=== PATIENT | female | born 1955 | race Caucasian/White ===

== ENCOUNTER 2020-06-30 06:33 | Day surgery (SDC) | payer OTHER ==
[2020-06-28 08:59] VITALS: BMI 51.1
[~2020-06-30 06:33] MED LIST: LACTATED RINGERS 1,000 ML IV SCH
[2020-06-30 06:58] VITALS: TEMP 97
[2020-06-30 07:09] LABS: Glucose,Whole Blood 143 mg/dL (75-99)
[2020-06-30] MEDS ORDERED: KETAMINE 10 MG/ML 20 ML VIAL ONE (07:35)
[2020-06-30] MEDS ORDERED: MIDAZOLAM 2 MG/2 ML VIAL ONE (07:35)
[2020-06-30] MEDS ORDERED: PROPOFOL 10 MG/ML 20 ML VIAL IV ONE (07:35)
[2020-06-30] MEDS ORDERED: LIDOCAINE 1% INJ 10MG/ML (20 ML MDV) ONE (07:35)
[2020-06-30] MEDS ORDERED: fentaNYL (PF) 50 MCG/ML 2 ML AMP ONE (07:35)
--- NOTE | 2020-06-30 08:18 | P.PCN ---
Date of Procedure: 06/30/20 Description of Procedure: Brief history: Patient is a 64-year-old female presenting for outpatient EGD and colonoscopy for evaluation of abdominal pain, epigastric abdominal pain and constipation. The patient was seen in the GI clinic where she is reporting abdominal pain and constipation. She reports long-standing history of constipation. She reports hard stools, cramping with bowel movement. She also has intermittent epigastric abdominal pain. Long-standing history of PPI therapy and she also reports a remote history of peptic ulcer disease. She was last colonoscopy was in 2017 with 4 polyps removed at that time. Procedure performed: Esophagogastroduodenoscopy with biopsy Colonoscopy with polypectomy Estimated blood loss: Minimal. Preoperative diagnosis: Abdominal pain, epigastric abdominal pain, constipation, personal history of colon polyps, last colonoscopy 2016 Anesthesia: MAC Procedure: After informed consent was obtained from the patient was brought into the endoscopy unit and IV sedation was administered by anesthesia under continuous monitoring. Initially upper endoscopy was done. The Olympus GF 190 video endoscope was inserted into the mouth and esophagus intubated without any difficulty and was gradually advanced into the stomach and duodenum and caref ully examined. The bulb and second part of the duodenum appeared normal, with biopsies taken. The scope was then withdrawn into the stomach adequately insufflated with air and upon careful examination the antrum and body, cardia and fundus appeared normal, except for some mild scattered erythema in the antrum and body suggestive of mild gastritis with biopsies taken. The scope was then withdrawn into the esophagus. The GE junction was located at 40 cm to the incisors, and biopsied to rule out reflux esophagitis. It appeared regular with no erythema erosions or ulcerations. Rest of the esophagus appeared normal. Patient tolerated the procedure well. At this time the patient continued to remain sedation. Initial digital rectal examination was normal. Olympus CF 190 video colonoscope was then inserted into the rectum and gradually advanced to the cecum without any difficulty. Careful examination was performed as the scope was gradually being withdrawn. The prep was excellent. The cecum, ascending colon, transverse colon, descending colon, sigmoid colon and rectum appeared normal. Multiple small and large mouth diverticula noted in the left colon. 2 polyps measuring 5 and 3 mm in size removed with cold snare polypectomy from the transverse colon. 4 mm descending colon polyp removed with cold snare polypectomy. Retroflexion was performed in the rectum and no lesions were noted, low-grade internal hemorrhoids seen. Patient tolerated the procedure well. Impression: 1. Mild gastritis. Biopsies taken of the duodenum, antrum body and GE junction. 2. 3 polyps removed with cold snare polypectomy, 2 from the transverse colon and one from the descending colon. Moderate left colonic diverticulosis. Low- grade internal hemorrhoids. Recommendations: Findings of this examination were discussed with the patient as well as her daughter. Okay to resume diet. Okay to resume medications. Would recommend the patient continue with bowel regimen as prescribed in GI clinic. Follow up in GI clinic as scheduled for results of biopsies. Anticipate repeat colonoscopy in 5 years for history of colon polyps.
[2020-06-30 08:23] VITALS: RESP 16
[2020-06-30 08:40] VITALS: BP 118/76; PULSE 81
== END 2020-06-30 09:04 | disposition home or self-care (01) ==
LOC: ORWHC2ENDO 06:33
PROVIDERS: ATTEND Internal Medicine
DX: D12.3 Benign neoplasm of transverse colon (principal); D12.4 Benign neoplasm of descending colon; K29.50 Unspecified chronic gastritis without bleeding; K21.9 Gastro-esophageal reflux disease without esophagitis; K57.30 Diverticulosis of large intestine without perforation or abscess without bleeding; K64.8 Other hemorrhoids; Z87.11 Personal history of peptic ulcer disease; Z86.010 Personal history of colon polyps; I10 Essential (primary) hypertension; G47.33 Obstructive sleep apnea (adult) (pediatric); E66.01 Morbid (severe) obesity due to excess calories; Z79.899 Other long term (current) drug therapy; Z98.891 History of uterine scar from previous surgery; Z90.49 Acquired absence of other specified parts of digestive tract; Z98.890 Other specified postprocedural states; Z87.891 Personal history of nicotine dependence; Z88.8 Allergy status to other drugs, medicaments and biological substances; Z68.43 Body mass index [BMI] 50.0-59.9, adult
CPT/HCPCS: 88305; 45385; 43239; J2250; J2001; J3010; J2704

== ENCOUNTER 2020-12-05 10:52 | Emergency (ER) | payer OTHER ==
[2020-12-05 11:14] VITALS: RESP 18; TEMP 98.8
--- NOTE | 2020-12-05 12:02 | ED ---
General Adult HPI - General Chief complaint: Shortness of Breath Stated complaint: SOB,Cough Time Seen by Provider: 12/05/20 11:08 Source: patient, EMS, RN notes reviewed, old records reviewed Mode of arrival: EMS Limitations: no limitations - History of Present Illness Initial comments: 65-year-old female presenting for evaluation of cough, sore throat, mild dyspnea. Patient has been exposed to coronavirus. Additionally she said abdominal cramping and diarrhea. No significant vomiting. She reports a sore throat. Patient has been sick for the past several days. Her daughter tested positive for coronavirus approximately one week ago. - Related Data Home Medications Medication Instructions Recorded Confirmed Chlorthalidone 25 mg PO AC-BRKFST 06/28/20 12/05/20 Docusate [Colace] 100 mg PO BID 06/28/20 12/05/20 Ergocalciferol (Vitamin D2) 1,250 mcg PO TUSA 06/28/20 12/05/20 [Vitamin D2] Losartan Potassium [Cozaar] 100 mg PO DAILY 06/28/20 12/05/20 Metoprolol Succinate (ER) [Toprol 100 mg PO DAILY 06/28/20 12/05/20 Xl] Omeprazole 20 mg PO DAILY 06/28/20 12/05/20 Potassium Chloride ER [K-Dur 20] 20 meq PO DAILY 06/28/20 12/05/20 Ascorbic Acid [Vitamin C] 1,000 mg PO DAILY 12/05/20 12/05/20 Loratadine 10 mg PO DAILY 12/05/20 12/05/20 Simethicone Chew [Mylicon Chew] 80 mg PO ACHS PRN 12/05/20 12/05/20 Zinc 50 mg PO DAILY 12/05/20 12/05/20 guaiFENesin [Mucinex] 1,200 mg PO DAILY 12/05/20 12/05/20 polyethylene glycoL 3350 [Miralax] 17 gm PO DAILY 12/05/20 12/05/20 Allergies Allergy/AdvReac Type Severity Reaction Status Date / Time [id number]-Vdq Reductase Allergy Unknown Body Aches Verified 12/05/20 11:44 Inhibitor bp meds Allergy Unknown Swelling Uncoded 12/05/20 11:44 Review of Systems ROS Statement: Those systems with pertinent positive or pertinent negative responses have been documented in the HPI. ROS Other: All systems not noted in ROS Statement are negative. Past Medical History Past Medical History: Diabetes Mellitus, GERD/Reflux, Hypertension, Myocardial Infarction (CA), Osteoarthritis (OA), Sleep Apnea/CPAP/BIPAP Additional Past Medical History / Comment(s): Diet controlled diabetes., environmental allergies., migraines, uses c-pap, Arthritis knees-difficulty walking at times-uses walker, degenerative arthritis., Hx of pre-cancerous colon polyps, constipation, Last Myocardial Infarction Date:: Pt unsure History of Any Multi-Drug Resistant Organisms: None Reported Past Surgical History: Section, Cholecystectomy, Orthopedic Surgery Additional Past Surgical History / Comment(s): arthroscopy meniscus repair, Arterial bx left latter day. Past Anesthesia/Blood Transfusion Reactions: No Reported Reaction Past Psychological History: Depression Smoking Status: Former smoker Past Alcohol Use History: Rare Past Drug Use History: None Reported - Past Family History Mother Family Medical History: No Reported History General Exam Limitations: no limitations General appearance: alert, in no apparent distress Head exam: Present: atraumatic, normocephalic Eye exam: Present: normal appearance, PERRL ENT exam: Present: normal exam Neck exam: Present: normal inspection. Absent: tenderness, meningismus Respiratory exam: Present: rhonchi. Absent: respiratory distress, wheezes, rales Cardiovascular Exam: Present: regular rate, normal rhythm GI/Abdominal exam: Present: soft. Absent: distended, tenderness, guarding Extremities exam: Present: normal inspection, normal capillary refill. Absent: pedal edema, calf tenderness Neurological exam: Present: alert, oriented X3, CN II-XII intact. Absent: motor sensory deficit Psychiatric exam: Present: normal affect, normal mood Skin exam: Present: warm, dry, intact. Absent: cyanosis, diaphoretic Course Vital Signs 12/05/20 12/05/20 12/05/20 11:08 11:12 11:30 Temperature 98.8 F Pulse Rate 82 Respiratory 18 Rate Blood Pressure 119/76 119/76 O2 Sat by Pulse 96 96 93 L Oximetry 12/05/20 12/05/20 12/05/20 12:00 12:30 13:00 Temperature Pulse Rate 87 81 80 Respiratory Rate Blood Pressure 126/76 128/79 127/80 O2 Sat by Pulse 93 L 94 L 95 Oximetry 12/05/20 13:30 Temperature Pulse Rate 82 Respiratory Rate Blood Pressure 118/77 O2 Sat by Pulse 95 Oximetry EKG Findings - EKG Comments: EKG Findings:: EKG: Sinus rhythm, rate of 79, SD interval 156, QRS duration 88, QTC 438, no ST segment elevation. T-wave flattening in the precordial leads. Medical Decision Making - Medical Decision Making 64-year-old female cough congestion, sore throat, GI symptoms. Concerning for coronavirus. X-ray performed, negative for pneumonia, no acute findings. Patient has a CBC which shows some leukopenia, her negative d-dimer, negative lactic acid. EKG is sinus rhythm. Patient maintains her oxygen throughout her stay in the emergency department on room air in the mid to high 90s. No respiratory distress. Patient is a candidate for monoclonal antibody and has consented to treatment. Strict return parameters, she will monitor her pulse ox at home. Patient is being transfused monoclonal antibody. - Lab Data Result diagrams: 12/05/20 12:14 12/05/20 13:00 Lab Results 12/05/20 12/05/20 12/05/20 Range/Units 12:14 12:14 13:00 WBC 3.1 L (3.8-10.6) k/uL RBC 4.37 (3.80-5.40) m/uL Hgb 13.6 (11.4-16.0) gm/dL Hct 38.8 (34.0-46.0) % MCV 88.9 (80.0-100.0) fL MCH 31.2 (25.0-35.0) pg MCHC 35.1 (31.0-37.0) g/dL RDW 12.9 (11.5-15.5) % Plt Count 280 (150-450) k/uL MPV 6.6 Neutrophils % 57 % Lymphocytes % 26 % Monocytes % 12 % Eosinophils % 1 % Basophils % 2 % Neutrophils # 1.8 (1.3-7.7) k/uL Lymphocytes # 0.8 L (1.0-4.8) k/uL Monocytes # 0.4 (0-1.0) k/uL Eosinophils # 0.0 (0-0.7) k/uL Basophils # 0.1 (0-0.2) k/uL PT (9.0-12.0) sec INR (<1.2) APTT (22.0-30.0) sec D-Dimer (<0.60) mg/L FEU Sodium 136 L (137-145) mmol/L Potassium 4.1 (3.5-5.1) mmol/L Chloride 100 (98-107) mmol/L Carbon Dioxide 29 (22-30) mmol/L Anion Gap 7 mmol/L BUN 12 (7-17) mg/dL Creatinine 0.81 (0.52-1.04) mg/dL Est GFR (CKD-EPI)AfAm >90 (>60 ml/min/1.73 sqM) Est GFR (CKD-EPI)NonAf 78 (>60 ml/min/1.73 sqM) Glucose 116 H (74-99) mg/dL Plasma Lactic Acid Siddhartha 1.2 (0.7-2.0) mmol/L Calcium 9.3 (8.4-10.2) mg/dL Magnesium 2.0 (1.6-2.3) mg/dL Total Bilirubin 0.4 (0.2-1.3) mg/dL AST 50 H (14-36) U/L ALT 49 H (4-34) U/L Alkaline Phosphatase 93 (38-126) U/L Lactate Dehydrogenase 512 (313-618) U/L C-Reactive Protein 9.5 (<10.0) mg/L Total Protein 7.7 (6.3-8.2) g/dL Albumin 4.3 (3.5-5.0) g/dL Coronavirus (PCR) (Not Detectd) 12/05/20 12/05/20 Range/Units 13:00 14:00 WBC (3.8-10.6) k/uL RBC (3.80-5.40) m/uL Hgb (11.4-16.0) gm/dL Hct (34.0-46.0) % MCV (80.0-100.0) fL MCH (25.0-35.0) pg MCHC (31.0-37.0) g/dL RDW (11.5-15.5) % Plt Count (150-450) k/uL MPV Neutrophils % % Lymphocytes % % Monocytes % % Eosinophils % % Basophils % % Neutrophils # (1.3-7.7) k/uL Lymphocytes # (1.0-4.8) k/uL Monocytes # (0-1.0) k/uL Eosinophils # (0-0.7) k/uL Basophils # (0-0.2) k/uL PT 10.3 (9.0-12.0) sec INR 1.0 (<1.2) APTT 21.3 L (22.0-30.0) sec D-Dimer 0.43 (<0.60) mg/L FEU Sodium (137-145) mmol/L Potassium (3.5-5.1) mmol/L Chloride (98-107) mmol/L Carbon Dioxide (22-30) mmol/L Anion Gap mmol/L BUN (7-17) mg/dL Creatinine (0.52-1.04) mg/dL Est GFR (CKD-EPI)AfAm (>60 ml/min/1.73 sqM) Est GFR (CKD-EPI)NonAf (>60 ml/min/1.73 sqM) Glucose (74-99) mg/dL Plasma Lactic Acid Siddhartha (0.7-2.0) mmol/L Calcium (8.4-10.2) mg/dL Magnesium (1.6-2.3) mg/dL Total Bilirubin (0.2-1.3) mg/dL AST (14-36) U/L ALT (4-34) U/L Alkaline Phosphatase (38-126) U/L Lactate Dehydrogenase (313-618) U/L C-Reactive Protein (<10.0) mg/L Total Protein (6.3-8.2) g/dL Albumin (3.5-5.0) g/dL Coronavirus (PCR) Detected A (Not Detectd) Disposition Clinical Impression: COVID-19 Disposition: HOME SELF-CARE Condition: Fair Instructions (If sedation given, give patient instructions): Coronavirus Disease 2019 (COVID-19) Is patient prescribed a controlled substance at d/c from ED?: No Referrals: Monica Burroughs MD [Primary Care Provider] - 1-2 days Time of Disposition: 14:29
[2020-12-05 12:27] LABS: Basophils # (A) 0.1 k/uL (0-0.2); Basophils % (A) 2 %; Eosinophils % (A) 1 %; HCT 38.8 % (34.0-46.0); HGB 13.6 gm/dL (11.4-16.0); Lymphocytes # (A) 0.8 k/uL (1.0-4.8); Lymphocytes % (A) 26 %; MCH 31.2 pg (25.0-35.0); MCHC 35.1 g/dL (31.0-37.0); MCV 88.9 fL (80.0-100.0); Mean Platelet Volume 6.6; Monocytes # (A) 0.4 k/uL (0-1.0); Monocytes % (A) 12 %; Neutrophils # (A) 1.8 k/uL (1.3-7.7); Neutrophils % (A) 57 %; Platelet Count 280 k/uL (150-450); RBC 4.37 m/uL (3.80-5.40); RDW 12.9 % (11.5-15.5); WBC 3.1 k/uL (3.8-10.6)
--- NOTE | 2020-12-05 12:30 | XR ---
EXAMINATION TYPE: XR chest 1V portable DATE OF EXAM: 12/05/2020 HISTORY: Shortness of breath. COMPARISON: None. TECHNIQUE: Single view of the chest is submitted. FINDINGS: Demonstrated are scattered senescent parenchymal change. There is no evidence for focal infiltrate. The heart is stable. Hilar and mediastinal structures are within normal limits. Degenerative changes are seen of the dorsal spine. IMPRESSION: 1. Chronic changes without evidence for acute pulmonary disease.
[2020-12-05 13:48] LABS: ALT 49 U/L (4-34); AST 50 U/L (14-36); African American GFR (CKD) >90 (>60 ml/min/1.73 sqM); Albumin 4.3 g/dL (3.5-5.0); Alkaline Phosphatase 93 U/L (38-126); Anion Gap 7 mmol/L; Blood Urea Nitrogen 12 mg/dL (7-17); C Reactive Protein 9.5 mg/L (<10.0); Calcium 9.3 mg/dL (8.4-10.2); Carbon Dioxide 29 mmol/L (22-30); Chloride 100 mmol/L (98-107); Glucose 116 mg/dL (74-99); LDH 512 U/L (313-618); Non-African American GFR(CKD) 78 (>60 ml/min/1.73 sqM); Potassium 4.1 mmol/L (3.5-5.1); Sodium 136 mmol/L (137-145); Total Bilirubin 0.4 mg/dL (0.2-1.3); Total Protein 7.7 g/dL (6.3-8.2)
[2020-12-05 13:55] LABS: D-Dimer 0.43 mg/L FEU (<0.60); Prothrombin Time 10.3 sec (9.0-12.0)
[2020-12-05 14:04] LABS: Partial Thromboplastin Time 21.3 sec (22.0-30.0)
[2020-12-05] MEDS ORDERED: BAMLANIVIMAB 700 MG in SODIUM CHLORIDE 0.9% 50 ML IVPB ONE (15:15)
[2020-12-05 17:44] VITALS: BP 121/87; PULSE 91
[2020-12-05 20:14] LABS: Ferritin 574.3 ng/mL (10.0-291.0)
== END 2020-12-05 17:44 | disposition home or self-care (01) ==
LOC: EC 10:52
DX: U07.1 COVID-19 (principal); E11.9 Type 2 diabetes mellitus without complications; K21.9 Gastro-esophageal reflux disease without esophagitis; M19.90 Unspecified osteoarthritis, unspecified site; I25.2 Old myocardial infarction; F32.9 Major depressive disorder, single episode, unspecified; I10 Essential (primary) hypertension; Z87.891 Personal history of nicotine dependence
CPT/HCPCS: 36415; 93005; 85379; 80053; 82728; 83605; 83615; 83735; 84484; 85025; 85610; 85730; 86140; 84145; 87635; 71045; 99285; 96365; Q0239

== ENCOUNTER → 2021-05-11 | Outpatient (CLI) | payer OTHER ==
[2021-05-11 11:16] LABS: African American GFR (CKD) >90 (>60 ml/min/1.73 sqM); Blood Urea Nitrogen 23 mg/dL (7-17); Non-African American GFR(CKD) >90 (>60 ml/min/1.73 sqM)
--- NOTE | 2021-05-11 12:41 | CT ---
EXAMINATION TYPE: CT abdomen pelvis w con DATE OF EXAM: 05/11/2021 HISTORY: Abdominal hernia; epigastric pain CT DLP: 4205.7mGycm Automated Exposure Control for Dose Reduction was Utilized. CONTRAST: CT scan of the abdomen and pelvis is performed with oral and with IV Contrast, patient injected with 100 mL of Isovue 300. COMPARISON: None. FINDINGS: LUNG BASES: No significant abnormality is appreciated. LIVER/GB: Cholecystectomy clips noted. Liver diffusely low dense consistent with diffuse fatty infilt ration. PANCREAS: No significant abnormality is seen. SPLEEN: No significant abnormality is seen. ADRENALS: No significant abnormality is seen. KIDNEYS: Symmetric cortical medullary uptake and excretion without hydronephrosis seen bilaterally. BOWEL: The oral contrast does not reach level of terminal ileum making evaluation of distal bowel sli ghtly suboptimal. Normal-appearing appendix seen from cecum in the right upper pelvis. No suspicious small or large bowel dilatation. There is 3.2 cm first or second portion duodenal diverticulum axial image 30. Few scattered colonic diverticula. No CT evidence for acute diverticulitis. UTERUS/ADNEXA: Anteverted uterus. Occasional scattered tiny pelvic phlebolith. LYMPH NODES: No greater than 1cm abdominal or pelvic lymph nodes are appreciated. OSSEOUS STRUCTURES: No significant abnormality is seen. OTHER: There is ventral wall hernia containing fat and portion of transverse colon with neck identifi ed axial image 50 in the lower abdomen and upper pelvis. Hernia best appreciated sagittal image 67 ne ar the Level of the umbilicus. Neck measures 2.6 cm axial image 50. IMPRESSION: Confirmation of ventral wall hernia containing fat and tiny mesenteric vessels along with portion of transverse colon. No bowel obstruction noted.
== END | disposition home or self-care (01) ==
LOC: RADCTMAIN 09:56
PROVIDERS: ATTEND Surgery
DX: K43.9 Ventral hernia without obstruction or gangrene (principal)
CPT/HCPCS: 82565; 84520; 74177; 36415; Q9967 ×2

== ENCOUNTER 2021-05-22 09:53 | Day surgery (SDC) | payer OTHER ==
[2021-05-17 10:47] VITALS: BMI 53.2
[~2021-05-22 09:53] MED LIST changes: +ACETAMINOPHEN TAB 500 MG TAB PO PRN; +DEXAMETHASONE SOD PHOSPHATE 4 MG/ML 1 ML VIAL IV ONE; +HEPARIN SODIUM,PORCINE/PF 5,000 UNIT/0.5 ML SYRINGE SQ PRN; +ONDANSETRON 4 MG/2 ML VIAL IVP ONE; +ceFAZolin 3 GM in SODIUM CHLORIDE 0.9% 100 ML IVPB PRN
--- NOTE | 2021-05-22 10:58 | P.HPADDEND ---
H&P Addendum H&P Addendum Date: 05/22/21 The procedure should be listed as repair incarcerated umbilical hernia with mesh, possible umbilectomy
[2021-05-22 11:18] LABS: Glucose,Whole Blood 125 mg/dL (75-99)
[2021-05-22] MEDS ORDERED: MIDAZOLAM 2 MG/2 ML VIAL IV ONE (11:38)
[2021-05-22] MEDS ORDERED: MIDAZOLAM 2 MG/2 ML VIAL ONE (12:50)
[2021-05-22] MEDS ORDERED: ROCURONIUM 10 MG/ML (5 ML VIAL) IV ONE (12:50)
[2021-05-22] MEDS ORDERED: PROPOFOL 10 MG/ML 20 ML VIAL IV ONE (12:50)
[2021-05-22] MEDS ORDERED: SUCCINYLCHOLINE CHLORIDE VIAL 200 MG/10 ML VIAL IV ONE (12:50)
[2021-05-22] MEDS ORDERED: GLYCOPYRROLATE 0.2 MG/ML 2 ML VIAL ONE (12:50)
[2021-05-22] MEDS ORDERED: LIDOCAINE 1% INJ 10MG/ML (20 ML MDV) ONE (12:50)
[2021-05-22] MEDS ORDERED: fentaNYL (PF) 50 MCG/ML 2 ML AMP ONE (12:50)
[2021-05-22] MEDS ORDERED: NEOSTIGMINE 1 MG/ML 10 ML VIAL ONE (12:50)
[2021-05-22] MEDS ORDERED: LACTATED RINGERS 1,000 ML IV ONE (14:24)
--- NOTE | 2021-05-22 14:43 | P.OP ---
Date of Procedure: 05/22/21 Procedure(s) Performed: PREOPERATIVE DIAGNOSIS: Incarcerated umbilical hernia POSTOPERATIVE DIAGNOSIS: Same PROCEDURE: Repair incarcerated umbilical hernia with mesh, umbilectomy, partial omentectomy SURGEON: Dr. Hein ANESTHESIA: General OPERATIVE PROCEDURE DETAILS: Patient placed on the operating table in the supine position. Abdomen was prepped and draped in usual sterile fashion. An elliptical incision was made around the umbilicus in a horizontal fashion. The umbilicus and the hernia sac were dissected down to the level of the fascia. The umbilicus was excised. The hernia sac was carefully dissected. The size of the fascial defect was 4 x 4 centimeter. There was an additional 8 mm defect superior to our umbilical hernia site containing fat and other small 2-3 mm fascial defect identified as well. These were incorporated into the original fascial defect. The omentum was adherent to the hernia sac. The omentum was partially excised using interrupted 0 silk ties. The hernia sac was then partially excised as well. The defect in the peritoneum was closed using a running 20 locking's Vicryl suture. This was reduced back into the pre-peroneal space. The preperitoneal space was then carefully dissected circumferentially. Once we had enough space the 8 cm round ventral X mesh was placed beneath the fascia and secured to the fascia using trans-fascial 0 Ethibond sutures. The defect was closed using a vest over pants technique using interrupted horizontal mattress 0 Ethibond sutures. The folding edge was tacked down using interrupted 0 Ethibond sutures as well. The area was irrigated. No bleeding was seen. The subcutaneous tissues were closed using 20 and 3-0 Vicryl sutures. The skin was closed using jesica. Sterile dressings were applied. HERNIA CHARACTERISTICS: Length: 4 cm Width: 4 cm Type: Incarcerated umbilical TYPE OF MESH USED: 8 cm round ventral X LOCATION OF MESH: Sub-lay FIXATION: 0 Ethibond trans-fascial sutures DISPOSITION: Stable to recovery room
[2021-05-22 14:50] VITALS: TEMP 97.7
[2021-05-22] MEDS ORDERED: KETOROLAC 15 MG/ML 1 ML VIAL ONE (15:02)
[2021-05-22 15:04] LABS: Glucose,Whole Blood 178 mg/dL (75-99)
[2021-05-22] MEDS ORDERED: diphenhydrAMINE 50 MG/ML 1 ML VIAL ONE (15:05)
[2021-05-22] MEDS ORDERED: KETOROLAC 15 MG/ML 1 ML VIAL IVP ONE (15:08)
[2021-05-22] MEDS ORDERED: diphenhydrAMINE 50 MG/ML 1 ML VIAL IVP ONE (15:11)
[2021-05-22] MEDS: HYDROmorphone 0.5 MG/0.5 ML SYRINGE IVP PRN ×2 (15:11→15:34)
[2021-05-22] MEDS ORDERED: ONDANSETRON 4 MG/2 ML VIAL ONE (16:24)
[2021-05-22] MEDS ORDERED: ONDANSETRON 4 MG/2 ML VIAL IVP ONE (16:30)
[2021-05-22 16:38] VITALS: BP 128/87; PULSE 80; RESP 16
[2021-05-22] MEDS ORDERED: IBUPROFEN 600 MG TAB PO SCH (18:00)
[2021-05-22] MEDS ORDERED: ACETAMINOPHEN TAB 325 MG TAB PO SCH (21:00)
== END 2021-05-22 18:00 | disposition home or self-care (01) ==
LOC: OR 09:53
PROVIDERS: ATTEND Surgery
DX: K42.9 Umbilical hernia without obstruction or gangrene (principal); I10 Essential (primary) hypertension; E11.9 Type 2 diabetes mellitus without complications; Z88.8 Allergy status to other drugs, medicaments and biological substances; G47.33 Obstructive sleep apnea (adult) (pediatric); K21.9 Gastro-esophageal reflux disease without esophagitis; E78.5 Hyperlipidemia, unspecified; Z79.899 Other long term (current) drug therapy; E66.01 Morbid (severe) obesity due to excess calories
CPT/HCPCS: 88302; 49587; C1781; J2250; J0330; J1200; J1100; J2710; J0690; J2405; J2001; J3010; J1885; J2704; J1170; J1644

== ENCOUNTER → 2021-11-29 | Outpatient (CLI) | payer OTHER | END | disposition home or self-care (01) | LOC: RADUSWWP 13:00 | PROVIDERS: ATTEND Family Medicine | DX: R22.43 Localized swelling, mass and lump, lower limb, bilateral (principal); I50.32 Chronic diastolic (congestive) heart failure | CPT/HCPCS: 93922; 93923 ==

== ENCOUNTER → 2022-08-16 | Outpatient (CLI) | payer OTHER ==
--- NOTE | 2022-08-16 10:22 | XR ---
EXAMINATION TYPE: XR knee limited LT DATE OF EXAM: 08/16/2022 CLINICAL HISTORY: pain TECHNIQUE: Two views of the left knee are obtained. COMPARISON: None. FINDINGS: There is no acute fracture/dislocation. The tri-compartment joint spaces appear moderatel y narrowed. Spur formation noted about the margins of the femoral condyles and tibial plateaus as wel l as intracondylar regions. The overlying soft tissue appears unremarkable. IMPRESSION: There is no acute fracture or dislocation ICD 10 NO FRACTURE, INITIAL EVALUATION
== END | disposition home or self-care (01) ==
LOC: RADXRMAIN 10:02
PROVIDERS: ATTEND Family Medicine
DX: M25.562 Pain in left knee (principal)

== ENCOUNTER → 2023-01-03 | Outpatient (CLI) | payer MEDICARE, OTHER ==
--- NOTE | 2023-01-03 13:33 | CT ---
EXAMINATION TYPE: CT chest abdomen wo/w con DATE OF EXAM: 01/03/2023 COMPARISON: 05/11/2021 HISTORY: Severe epigastric pain Stat hold and call CT DLP: 2018 mGycm CONTRAST: CT scan of the chest, abdomen is performed with Oral Contrast and with IV Contrast, patient injected with 100 mL of Isovue 300. CT Chest: LUNGS: The lungs are clear and free of infiltrate or atelectasis. No pulmonary nodule or mass is det ected. No pleural effusion or CT evidence of interstitial lung disease. MEDIASTINUM: Thoracic aorta is of normal caliber. The heart is not enlarged. No evidence for media stinal mass or adenopathy. HILAR STRUCTURES: No evidence for mass. No hilar adenopathy is appreciated. OTHER: No significant abnormality. CONTRAST CT ABDOMEN AND PELVIS FINDINGS: LIVER/GB: No space occupying hepatic lesion. Biliary tree is of normal caliber. Hepatomegaly with u nderlying hepatic steatosis. The gallbladder is surgically absent. PANCREAS: No inflammation. No distinct mass. SPLEEN: No splenic enlargement. No lesion seen. ADRENALS: No nodule. No thickening. KIDNEYS/BLADDER: No hydronephrosis. No nephrolithiasis. No distinct renal mass. BOWEL: Visualized bowel loops. Normal caliber without inflammatory change. LYMPH NODES: No greater than 1cm abdominal or pelvic lymph nodes are appreciated. AORTA: No significant abnormality. OSSEOUS STRUCTURES: No significant abnormality is seen. OTHER: No significant additional abnormality is seen. IMPRESSION: 1. No acute intrathoracic or intra-abdominal process seen. 2. Hepatomegaly with hepatic steatosis.
== END | disposition home or self-care (01) ==
LOC: RADCTMAIN 10:52
PROVIDERS: ATTEND Family Medicine
DX: R16.0 Hepatomegaly, not elsewhere classified (principal); K76.0 Fatty (change of) liver, not elsewhere classified; R10.13 Epigastric pain
CPT/HCPCS: 82565; 84520; 71270; 74170; Q9967

== ENCOUNTER → 2023-05-02 | Outpatient (CLI) | payer MEDICARE, OTHER ==
--- NOTE | 2023-05-03 09:35 | CT ---
EXAMINATION TYPE: CT lumbar spine wo con DATE OF EXAM: 05/02/2023 5:50 PM COMPARISON: CT abdomen 01/03/2023 HISTORY: LOW BACK PAIN [place] YEARS. CT DLP: 2122.80 mGycm Automated exposure control for dose reduction was used. Unenhanced CT of the lumbar spine was performed. Bone and soft tissue window settings are submitted as well as coronal and sagittal reconstructions. Incidental note is made of a disc osteophyte complex T10-T11 only partially L1-L2: Circumferential disc bulging with mild degenerative disc disease mild hypertrophic changes sin ce. Neural foramina remain patent. L2-L3: Moderate degenerative disc disease with diffuse circumferential disc bulging, hypertrophied fa cets and ligament flavum. Mild canal stenosis bilateral foraminal L3-L4: Severe degenerative disc disease with broad-based disc extrusion, more advanced facet arthropa thy and ligamentum flavum projecting. Focal right paracentral disc protrusion\herniation suspected. T here is moderate canal stenosis and bilateral foraminal encroachment L4-L5: Severe degenerative disc disease. There is severe canal stenosis, bilateral lateral recess jose nosis, advanced facet arthropathy. There is bilateral significant foraminal findings are suspicious f or a central and right paracentral disc herniation can't . L5-S1: Severe degenerative disc disease. No obvious canal stenosis. There is advanced facet arthropat hy and moderate bilateral foraminal approach. There is diverticulosis of the colon. Surgical clips in the gallbladder fossa. Aorta normal caliber. Small hiatal hernia. Bilateral vacuum changes within the SI joints compatible with arthropathy. 5 mm left adrenal nodule too small to characterize but retrospectively stable from the CT of the abdomen . Therefore, most likely on the basis of benign adenoma. Coronary artery calcification noted. IMPRESSION: 1. Multilevel severe degenerative disc disease. Findings are suspicious for a disc herniation central ly L4-L5. Additional findings of advanced facet arthropathy contribute to severe canal stenosis and b ilateral foraminal encroachment. Recommend follow-up MRI given limitation of exam. 2. Canal stenosis L3-4 and L2-3 as discussed above. Suspect a small right paracentral disc protrusion or herniation L3-L4. 3. Multilevel foraminal protrusion. 4. Diverticulosis of the sigmoid colon. There is mild induration of the fat in the pelvis. Correlate for mild acute diverticulitis. Report was called to Dr. Orosco's office 9:31 AM 05/03/2023.
== END | disposition home or self-care (01) ==
LOC: RADCTMAIN 17:24
PROVIDERS: ATTEND Psychiatry & Neurology Neurology
DX: M51.36 Other intervertebral disc degeneration, lumbar region (principal); M47.816 Spondylosis without myelopathy or radiculopathy, lumbar region; M99.73 Connective tissue and disc stenosis of intervertebral foramina of lumbar region; M48.061 Spinal stenosis, lumbar region without neurogenic claudication; K57.30 Diverticulosis of large intestine without perforation or abscess without bleeding; R29.6 Repeated falls
CPT/HCPCS: 72131

== ENCOUNTER 2023-07-17 08:07 | Day surgery (SDC) | payer MEDICARE, OTHER ==
[2023-07-12 13:00] VITALS: BMI 51.6
--- NOTE | 2023-07-15 09:02 | P.HPOR ---
History of Present Illness H&P Date: 07/15/23 Subjective: This is a 67 year old female that presents today for initial evaluation regarding a several year history of progressively worsening right and left hand paresthesias in the thumb, index, middle and ring fingers. The patient has tried bracing with no relief. They deny any inciting event or neck pain. She states her right side is worse than her left side. Her numbness is constant and is worse at night time. 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 Physical Examination: RUE: AIN/PIN/Radial/Ulnar/Median motor intact. Radial/Ulnar/Median SILT. 2+/4 Radial/Ulnar pulses palpated. 4/5 APB, 5/5 FDI. Negative Finkelsteins, negative CMC grind, positive Durkan's compression. LUE: AIN/PIN/Radial/Ulnar/Median motor intact. Radial/Ulnar/Median SILT. 2+/4 Radial/Ulnar pulses palpated. 5/5 APB, 5/5 FDI. Negative Finkelsteins, negative CMC grind, positive Durkan's compression. EMG/NCV EMG/NCV performed on June 03 2023 demonstrates bilateral severe carpal tunnel syndrome. Impression: 1.) Right carpal tunnel syndrome 2.) Left carpal tunnel syndrome Plan: Diagnosis and treatment options were discussed with the patient. The patient has failed conservative treatment and would like to pursue a right endoscopic vs open carpal tunnel release. Risks and benefits of surgery including bleeding, infection, damage to surrounding tissue, need for further surgery, possible need to convert to open procedure, residual numbness due to severe findings of compression on EMG/NCV were discussed and the patient wished to go forward with surgery. CC: Steven Hayden MD -Nico Garza DO Orthopedic Hand/Upper Extremity Surgeon Past Medical History Past Medical History: CVA/TIA, Diabetes Mellitus, GERD/Reflux, Hyperlipidemia, Hypertension, Osteoarthritis (OA), Sleep Apnea/CPAP/BIPAP Additional Past Medical History / Comment(s): Hx TIA X2 - PVC's/BP high, no o ther symptoms, Vertigo, environmental allergies, migraines, uses CPAP, difficulty walking at times due to back pain-uses walker, degenerative arthritis, Hx of pre-cancerous colon polyps, Varicose veins Last Myocardial Infarction Date:: Pt unsure History of Any Multi-Drug Resistant Organisms: None Reported Past Surgical History: Section, Cholecystectomy, Hernia Repair, Orthopedic Surgery Additional Past Surgical History / Comment(s): Section X1, arthroscopic meniscus repair left knee, arterial biopsy left hoahaoism, bilateral foot surgery for toe nail issues Past Anesthesia/Blood Transfusion Reactions: No Reported Reaction, Motion Sickness Additional Past Anesthesia/Blood Transfusion Reaction / Comment(s): vertigo Past Psychological History: Depression Smoking Status: Former smoker Past Alcohol Use History: Rare Additional Past Alcohol Use History / Comment(s): Quit smoking at age 54 Past Drug Use History: None Reported - Past Family History Mother Family Medical History: No Reported History Medications and Allergies Home Medications Medication Instructions Recorded Confirmed Type Losartan Potassium [Cozaar] 100 mg PO 1400 06/28/20 07/12/23 History Metoprolol Succinate (ER) [Toprol 100 mg PO QAM 06/28/20 07/12/23 History Xl] Omeprazole 20 mg PO BID 06/28/20 07/12/23 History Cetirizine HCl [Zyrtec] 10 mg PO QAM 07/12/23 07/12/23 History Dapagliflozin Propanediol [Farxiga] 5 mg PO QAM 07/12/23 07/12/23 History Furosemide [Lasix] 40 mg PO BID 07/12/23 07/12/23 History Linaclotide [Linzess] 145 mcg PO QAM 07/12/23 07/12/23 History Potassium Chloride [Klor-Con M20] 20 meq PO BID 07/12/23 07/12/23 History Allergies Allergy/AdvReac Type Severity Reaction Status Date / Time Hoqicvq-GRV-TbX Reductase Allergy Unknown Body Aches Verified 07/12/23 12:29 Inhibitor [Qpgviky-Cun-Mvw Reductase Inhibitor] Physical Examination Osteopathic Statement: *. No significant issues noted on an osteopathic structural exam other than those noted in the History and Physical/Consult.
[~2023-07-17 08:07] MED LIST changes: -ACETAMINOPHEN TAB 500 MG TAB PO PRN; -DEXAMETHASONE SOD PHOSPHATE 4 MG/ML 1 ML VIAL IV ONE; -HEPARIN SODIUM,PORCINE/PF 5,000 UNIT/0.5 ML SYRINGE SQ PRN; +LIDOCAINE 1% (10MG/ML) FOR IV START INTRADERMA PRN; -ONDANSETRON 4 MG/2 ML VIAL IVP ONE; +Pre Op ABX Message 1 EACH MISC MISCELLANE ONE; -ceFAZolin 3 GM in SODIUM CHLORIDE 0.9% 100 ML IVPB PRN
[2023-07-17 08:36] VITALS: TEMP 97.4
[2023-07-17] MEDS ORDERED: ONDANSETRON 4 MG/2 ML VIAL ONE (08:44)
[2023-07-17 08:56] LABS: Glucose,Whole Blood 117 mg/dL (70-110)
[2023-07-17] MEDS ORDERED: LIDOCAINE 2% INJ 20 MG/ML SQ ONE ×2 (09:05→09:31)
[2023-07-17] MEDS ORDERED: BUPIVACAINE (PF) 0.5% 30 ML VIAL SQ ONE ×2 (09:05→09:31)
[2023-07-17] MEDS ORDERED: DEXAMETHASONE SOD PHOSPHATE 4 MG/ML 1 ML VIAL IV ONE (09:21)
[2023-07-17] MEDS ORDERED: FAMOTIDINE 20 MG/2 ML VIAL IVP ONE (09:22)
[2023-07-17] MEDS ORDERED: KETAMINE HCL IN 0.9 % NACL 50 MG/5 ML SYRINGE ONE (09:26)
[2023-07-17] MEDS ORDERED: PROPOFOL 10 MG/ML 20 ML VIAL IV ONE (09:26)
[2023-07-17] MEDS ORDERED: MIDAZOLAM 2 MG/2 ML VIAL ONE (09:26)
[2023-07-17] MEDS ORDERED: fentaNYL (PF) 50 MCG/ML 2 ML AMP ONE (09:26)
--- NOTE | 2023-07-17 09:54 | P.OP ---
Date of Procedure: 07/17/23 Preoperative Diagnosis: Right carpal tunnel syndrome Postoperative Diagnosis: Right carpal tunnel syndrome Procedure(s) Performed: Right endoscopic carpal tunnel release Anesthesia: MAC Surgeon: Nico Garza Park Warden #1: Ric Ramon Estimated Blood Loss (ml): 0 Pathology: none sent Condition: stable Disposition: PACU Description of Procedure: This is a 67 year old female who presents today for a right endoscopic carpal tunnel release after having failed conservative treatment in the past. Risks and benefits of surgery were discussed with the patient including bleeding, damage to surrounding tissue, infection, need to convert to open procedure, need for further surgery as well as risks of anesthesia including pulmonary embolism and even and the patient wished to proceed with surgical intervention. The patients was seen in the pre-operative area by myself. Consent and H&P were completed and updated. The correct extremity was marked in the pre-operative area by myself and all other questions were answered. Operative Narrative: The patient was brought to the operating room by the department of anesthesia. They remained on the portable stretcher and a rolling hand table was brought to the side of the operative extremity. Pre-operative time out was performed indicating the correct patient, procedure and laterality. All in the room agreed. The patient was then drifted off to sleep by the department of an esthesia. MAC anesthesia was utilized and a 50:50 mixture of 1% Lidocaine and 0.5% bupivacaine was injected into the subcutaneous tissues of the palmar skin, 8ccs total. A nonsterile tourniquet was then applied to the operative extremity and the right upper extremity was then prepped and draped in normal sterile fashion. The operative extremity was the exsanguinated with an esmarch bandage and the tourniquet was inflated to 250mmHg. 15 blade scalpel was utilized to make a transverse incision on the palmar skin just ulnar to the palmaris longus tendon at the level of the distal wrist creas e. Ragnell retractor was then placed radially and blunt dissection was performed to reveal the distal forearm fascia. This was lifted with fine Clark pick ups and Littler tenotomy scissors were then used to open the forearm fascia transversely and a double skin hook was then placed. Hamate finder was placed into the carpal tunnel and then sequential sized dilators were inserted followed by the synovial elevator to separate the flexor tenosynovium from the undersurface of the transverse carpal ligament and a washboard texture was felt. The MicroAire endoscopic carpal tunnel release system gun was the then inserted into the carpal tunnel hugging the deep portion of the transverse carpal ligament in line with the base of the ring finger. Transverse fibers of the ligament were directly visualized. Pressure was applied on the palm to reveal the distal extent of the transverse carpal ligament. The blade was then deployed and the distal half of the transverse carpal ligament was released. The scope was then brought distal again and remaining transverse fibers were incised with the blade. The proximal half of the transverse carpal ligament was then divided and again the scope was advanced distal and remaining transverse fibers were incised with the blade. The radial and ulnar leaflets were directly visualized and mobile consistent with complete release. Tenotomy scissors were then ut ilized to release the remaining distal forearm fascia under direct visualization taking care to preserve the palmar cutaneous branch of the median nerve. Skin closure was performed with interrupted 4-0 Monocryl suture followed by steri strips. Sterile dressing was applied consisting 4x4s, Webril, and an edy bandage. Tourniquet was let down and the hand immediately was well perfused. The patient was then woken by the department of anesthesia and transferred to PACU in stable condition. Ric CABRAL was present for the case in its entirety and assisted in major portions of the case and protection of vital neurovascular structures. Nico Garza D.O. Orthopedic Hand/Upper Extremity Surgeon
[2023-07-17 10:14] VITALS: BP 135/87; PULSE 70; RESP 16
== END 2023-07-17 10:20 | disposition home or self-care (01) ==
LOC: OR 08:07
PROVIDERS: ATTEND Orthopaedic Surgery Hand Surgery
DX: G56.01 Carpal tunnel syndrome, right upper limb (principal); I63.9 Cerebral infarction, unspecified; I10 Essential (primary) hypertension; I25.2 Old myocardial infarction; I83.90 Asymptomatic varicose veins of unspecified lower extremity; E78.5 Hyperlipidemia, unspecified; E11.9 Type 2 diabetes mellitus without complications; F32.A Depression, unspecified; G43.909 Migraine, unspecified, not intractable, without status migrainosus; G47.33 Obstructive sleep apnea (adult) (pediatric); M19.90 Unspecified osteoarthritis, unspecified site; Z87.19 Personal history of other diseases of the digestive system; Z85.038 Personal history of other malignant neoplasm of large intestine; Z86.73 Personal history of transient ischemic attack (TIA), and cerebral infarction without residual deficits; Z90.49 Acquired absence of other specified parts of digestive tract; Z98.890 Other specified postprocedural states; Z87.891 Personal history of nicotine dependence; Z79.84 Long term (current) use of oral hypoglycemic drugs; Z88.8 Allergy status to other drugs, medicaments and biological substances
CPT/HCPCS: 29848; J2001; J2250; J1100; J2405; J3010; J3490; J2704; J0665

== ENCOUNTER 2023-08-07 06:56 | Day surgery (SDC) | payer MEDICARE, OTHER ==
--- NOTE | 2023-08-05 13:11 | P.HPOR ---
History of Present Illness H&P Date: 08/05/23 Chief Complaint: Left carpal tunnel syndrome Subjective: This is a 67 year old female that presents today for initial evaluation regarding a several year history of progressively worsening eft hand paresthesias in the thumb, index, middle and ring fingers. The patient has tried bracing with no relief. They deny any inciting event or neck pain. . Her numbness is constant and is worse at night time. 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 Physical Examination: LUE: AIN/PIN/Radial/Ulnar/Median motor intact. Radial/Ulnar/Median SILT. 2+/4 Radial/Ulnar pulses palpated. 5/5 APB, 5/5 FDI. Negative Finkelsteins, negative CMC grind, positive Durkan's compression. EMG/NCV EMG/NCV performed on June 03 2023 demonstrates bilateral severe carpal tunnel syndrome. Impression: 1.) Right carpal tunnel syndrome s/p right endoscopic carpal tunnel release 2.) Left carpal tunnel syndrome Plan: Diagnosis and treatment options were discussed with the patient. The patient has failed conservative treatment and would like to pursue a left endoscopic vs open carpal tunnel release. Risks and benefits of surgery including bleeding, infection, damage to surrounding tissue, need for further surgery, possible need to convert to open procedure, residual numbness due to severe findings of compression on EMG/NCV were discussed and the patient wished to go forward with surgery. CC: Steven Hayden MD -Nico Garza DO Orthopedic Hand/Upper Extremity Surgeon Past Medical History Past Medical History: CVA/TIA, Diabetes Mellitus, GERD/Reflux, Hyperlipidemia, Hypertension, Osteoarthritis (OA), Sleep Apnea/CPAP/BIPAP Additional Past Medical History / Comment(s): Hx TIA X2 - PVC's/BP high, no other symptoms. Vertigo. environmental allergies, migraines, uses CPAP, difficulty walking at times due to back pain-uses walker, degenerative arthritis. Hx of pre-cancerous colon polyps, Varicose veins. Last Myocardial Infarction Date:: Pt unsure History of Any Multi-Drug Resistant Organisms: None Reported Past Surgical History: Section, Cholecystectomy, Orthopedic Surgery Additional Past Surgical History / Comment(s): Section X1, arthroscopic meniscus repair left knee, arterial biopsy left [facility]. [facility]. foot surgery, recent right carpal tunnel endoscopic release Past Anesthesia/Blood Transfusion Reactions: No Reported Reaction, Motion Sickness Smoking Status: Former smoker - Past Family History Mother Family Medical History: No Reported History Medications and Allergies Home Medications Medication Instructions Recorded Confirmed Type Losartan Potassium [Cozaar] 100 mg PO 1400 06/28/20 07/30/23 History Metoprolol Succinate (ER) [Toprol 100 mg PO QAM 06/28/20 07/30/23 History Xl] Omeprazole 20 mg PO BID 06/28/20 07/30/23 History Cetirizine HCl [Zyrtec] 10 mg PO QAM 07/12/23 07/30/23 History Dapagliflozin Propanediol [Farxiga] 5 mg PO QAM 07/12/23 07/30/23 History Furosemide [Lasix] 40 mg PO BID 07/12/23 07/30/23 History Linaclotide [Linzess] 145 mcg PO QAM 07/12/23 07/30/23 History Potassium Chloride [Klor-Con M20] 20 meq PO BID 07/12/23 07/30/23 History Fluconazole [Diflucan] 150 mg PO WE 07/30/23 07/30/23 History guaiFENesin [Mucinex] 600 mg PO Q12H PRN 07/30/23 07/30/23 History Allergies Allergy/AdvReac Type Severity Reaction Status Date / Time Jzrnkvj-AKP-JuS Reductase Allergy Unknown Body Aches Verified 07/30/23 14:37 Inhibitor [Ojnijnj-Rmd-Prg Reductase Inhibitor] Physical Examination Osteopathic Statement: *. No significant issues noted on an osteopathic structural exam other than those noted in the History and Physical/Consult.
[~2023-08-07 06:56] MED LIST changes: +ONDANSETRON 4 MG/2 ML VIAL IVP ONE
[2023-08-07] MEDS ORDERED: HYDROmorphone 0.5 MG/0.5 ML SYRINGE IVP PRN (07:00)
[2023-08-07 07:34] VITALS: TEMP 97.1
[2023-08-07 07:46] LABS: Glucose,Whole Blood 129 mg/dL (70-110)
[2023-08-07] MEDS ORDERED: MIDAZOLAM 2 MG/2 ML VIAL ONE (08:00)
[2023-08-07] MEDS ORDERED: PROPOFOL 10 MG/ML 20 ML VIAL IV ONE (08:00)
[2023-08-07] MEDS ORDERED: fentaNYL (PF) 50 MCG/ML 2 ML AMP ONE (08:00)
[2023-08-07] MEDS ORDERED: KETAMINE HCL IN 0.9 % NACL 50 MG/5 ML SYRINGE ONE (08:00)
[2023-08-07] MEDS ORDERED: LIDOCAINE 2% INJ 20 MG/ML SQ ONE ×2 (08:08)
[2023-08-07] MEDS ORDERED: BUPIVACAINE (PF) 0.5% 30 ML VIAL SQ ONE ×2 (08:08)
--- NOTE | 2023-08-07 08:21 | P.OP ---
Date of Procedure: 08/07/23 Preoperative Diagnosis: Left carpal tunnel syndrome Postoperative Diagnosis: Left carpal tunnel syndrome Procedure(s) Performed: Left endoscopic carpal tunnel release Anesthesia: MAC Surgeon: Nico Garza Camper Assembler #1: Ric Ramon Estimated Blood Loss (ml): 0 Pathology: none sent Condition: stable Disposition: PACU Description of Procedure: This is a 67 year old female who presents today for a left endoscopic carpal tunnel release after having failed conservative treatment in the past. Risks and benefits of surgery were discussed with the patient including bleeding, damage to surrounding tissue, infection, need to convert to open procedure, need for further surgery as well as risks of anesthesia including pulmonary embolism and even and the patient wished to proceed with surgical intervention. The patients was seen in the pre-operative area by myself. Consent and H&P were completed and updated. The correct extremity was marked in the pre-operative area by myself and all other questions were answered. Operative Narrative: The patient was brought to the operating room by the department of anesthesia. They remained on the portable stretcher and a rolling hand table was brought to the side of the operative extremity. Pre-operative time out was performed indicating the correct patient, procedure and laterality. All in the room agreed. The patient was then drifted off to sleep by the department of anesthesia. MAC anesthesia was utilized and a 50:50 mixture of 1% Lidocaine and 0.5% bupivacaine was injected into the subcutaneous tissues of the palmar skin, 8ccs total. A nonsterile tourniquet was then applied to the operative extremity and the left upper extremity was then prepped and draped in normal sterile fashion. The operative extremity was the exsanguinated with an esmarch bandage and the tourniquet was inflated to 250mmHg. 15 blade scalpel was utilized to make a transverse incision on the palmar skin just ulnar to the palmaris longus tendon at the level of the distal wrist crease. Ragnell retractor was then placed radially and blunt dissection was performed to reveal the distal forearm fascia. This was lifted with fine Clark pick ups and Littler tenotomy scissors were then used to open the forearm fascia transversely and a double skin hook was then placed. Hamate finder was placed into the carpal tunnel and then sequential sized dilators were inserted followed by the synovial elevator to separate the flexor tenosynovium from the undersurface of the transverse carpal ligament and a washboard texture was felt. The MicroAire endoscopic carpal tunnel release system gun was the then inserted into the carpal tunnel hugging the deep portion of the transverse carpal ligament in line with the base of the ring finger. Transverse fibers of the ligament were directly visualized. Pressure was applied on the palm to reveal the distal extent of the transverse carpal ligament. The blade was then deployed and the distal half of the transverse carpal ligament was released. The scope was then brought distal again and remaining transverse fibers were incised with the blade. The proximal half of the transverse carpal ligament was then divided and again the scope was advanced distal and remaining transverse fibers were incised with the blade. The radial and ulnar leaflets were directly visualized and mobile consistent with complete release. Tenotomy scissors were then utilize d to release the remaining distal forearm fascia under direct visualization taking care to preserve the palmar cutaneous branch of the median nerve. Skin closure was performed with interrupted 4-0 Monocryl suture followed by steri strips. Sterile dressing was applied consisting 4x4s, Webril, and an edy bandage. Tourniquet was let down and the hand immediately was well perfused. The patient was then woken by the department of anesthesia and transferred to PACU in stable condition. Ric CABRAL was present for the case in its entirety and assisted in major portions of the case and protection of vital neurovascular structures. Nico Garza D.O. Orthopedic Hand/Upper Extremity Surgeon
[2023-08-07 09:07] VITALS: BP 125/84; PULSE 86; RESP 16
== END 2023-08-07 09:17 | disposition home or self-care (01) ==
LOC: OR 06:56
PROVIDERS: ATTEND Orthopaedic Surgery Hand Surgery
DX: G56.02 Carpal tunnel syndrome, left upper limb (principal); I63.9 Cerebral infarction, unspecified; E11.9 Type 2 diabetes mellitus without complications; K21.9 Gastro-esophageal reflux disease without esophagitis; E78.5 Hyperlipidemia, unspecified; M19.90 Unspecified osteoarthritis, unspecified site; G47.33 Obstructive sleep apnea (adult) (pediatric); F32.A Depression, unspecified; G43.909 Migraine, unspecified, not intractable, without status migrainosus; Z86.73 Personal history of transient ischemic attack (TIA), and cerebral infarction without residual deficits; J30.2 Other seasonal allergic rhinitis; I25.2 Old myocardial infarction; Z90.49 Acquired absence of other specified parts of digestive tract; Z98.890 Other specified postprocedural states; Z87.891 Personal history of nicotine dependence; Z79.899 Other long term (current) drug therapy; Z79.84 Long term (current) use of oral hypoglycemic drugs; Z88.8 Allergy status to other drugs, medicaments and biological substances
CPT/HCPCS: 29848; J2001; J2250; J2405; J3010; J2704; J0665

== ENCOUNTER → 2023-08-29 | Outpatient (CLI) | payer MEDICARE, OTHER ==
[2023-08-29 10:29] VITALS: BP 118/72; PULSE 79; RESP 15; TEMP 98.6
--- NOTE | 2023-08-29 15:56 | P.PAINPG ---
PQRS Measure Charge Sheet Comment: HISTORY OF PRESENT ILLNESS: A 67 yr old female as a referral from Dr Cancino presents today w severe and chronic LBP x 3 yrs secondary to DDD, spondylosis and facet arthropathy without myelopathy for evaluation. Pt states pain level is provoked at 9 /10 in intensity, constant, localized in the lower lumbar spine, predominantly axial, tingling in character w occasional shooting pain towards the BL hips and knees. Pain is provoked by laying flat. Pain is alleviated by PT which she will start this week, heat, medications (Tyl Arthritis), topical, use of a walker for ambulatory assistance, repositioning and rest. Oswestry axial pain score at 31. 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 Former tobacco user, No ETOH abuse, No illicit drug use FH: Mo- No Reported History All: See list Meds: See list REVIEW OF ORGAN SYSTEMS: CONSTITUTIONAL: No fevers or chills. No recent weight loss. NEUROLOGICAL: + numbness and tingling along the distal extremities. No seizure disorders or headaches. MUSCULOSKELETAL: + pain PSYCHIATRIC: Denies current depression or suicidal thoughts. Physical Examinations : Constitutional : Cooperative , not in acute distress . Neurologic : Cranial nerve II to XII intact. No focal neurological deficits. Psychiatric : alert & oriented x 3. Matching mood & appropriate affect. Judgment & insight intact. Musculoskeletal : Cervical Spine Motor strength in the deltoid and biceps: Normal right side. Normal Left side Motor strength biceps and the wrist extensors: Normal right side . Normal left side Motor strength in the triceps muscle: Normal right side. Normal left side Deep tendon reflexes: Normal at the biceps. Normal at Brachioradialis. Normal at triceps Vertebral body tenderness to deep palpation over Cervical facet loading test: positive bilaterally Spurling test: positive bilaterally Neck distraction test: positive bilaterally Jackie sign: positive bilaterally Lumbar spine Motor strength lower extremities ,thigh and legs 5/5 Right side , 5/5 Left side Deep tendon reflexes : Normal Knee Jerk. Normal Ankle Jerk Vertebral body tenderness over L4 Valencia Test positive Lumbar facet Loading Test: positive Right / positive Left Range of motion of the lumbar spine Flexion 30 degrees, extension 10 degrees Straight Leg Raise test: Left/ Right positive at 30 degrees Doc test: positive right / positive left. Severe tenderness over the Sacroiliac joint on the Right / Left sides Gaenslen test: positive bilaterally Seated flexion test: positive bilaterally. Sacral spine : Severe tenderness over the Sacroiliac joint: right side / left side Range of motion: Flexion of the lumbar spine <60 degrees Range of motion: Extension of the lumbar spine <20 degrees Gaenslen's Test positive Doc test: positive right side / left side Thigh Thrust Test Sacral Thrust Test Imaging: MRI of the non-con of the lumbar spine from 08/14/23 reviewed Assessment/ Plan : Lumbar DDD Recommendation of GALLITO L4-L5 #1. Risks, benefits of procedure discussed and patient verbalized understanding. Admits to anti- coagulant use or medical history of diabetes. Protocol for discontinuation/ continuation of medications shantal procedure discussed. Minimal anesthesia provided, if clinically indicated, consisting of Versed and Fentanyl. All questions answered. I have spent greater than 30 minutes on patient care today. Dr Silva was available by phone for the evaluation of this patient. The time was used to review the medical records including relevant urine studies and Prescription h istory (MAPs), review of the available imaging, evaluation and examination of the patient, coordination of care with the medical staff and if applicable referring physicians, as well as creation of the medical record Home Medications: Ambulatory Orders Losartan Potassium [Cozaar] 100 mg PO 1400 06/28/20 Metoprolol Succinate (ER) [Toprol Xl] 100 mg PO QAM 06/28/20 Omeprazole 20 mg PO BID 06/28/20 Cetirizine HCl [Zyrtec] 10 mg PO QAM 07/12/23 Dapagliflozin Propanediol [Farxiga] 5 mg PO QAM 07/12/23 Furosemide [Lasix] 40 mg PO BID 07/12/23 Linaclotide [Linzess] 145 mcg PO QAM 07/12/23 Potassium Chloride [Klor-Con M20] 20 meq PO BID 07/12/23 Fluconazole [Diflucan] 150 mg PO WE 07/30/23 guaiFENesin [Mucinex] 600 mg PO Q12H PRN 07/30/23 HYDROcodone/APAP 5-325MG [Denhoff 5-325] 1 tab PO Q6HR PRN 3 Days #12 tab 08/07/23 Controlled Substance Measures - Controlled Substance Measures Is patient prescribed a controlled substance at discharge?: No
== END ==
LOC: PNWHC3 09:54
PROVIDERS: ATTEND Specialist
DX: M47.16 Other spondylosis with myelopathy, lumbar region (principal); M48.061 Spinal stenosis, lumbar region without neurogenic claudication; M51.36 Other intervertebral disc degeneration, lumbar region; Z88.3 Allergy status to other anti-infective agents
CPT/HCPCS: 99211

== ENCOUNTER 2023-09-10 06:21 | Day surgery (SDC) | payer MEDICARE, OTHER ==
[2023-09-10] MEDS ORDERED: LACTATED RINGERS 1,000 ML IV SCH (06:35)
[2023-09-10 06:41] LABS: Glucose,Whole Blood 142 mg/dL (70-110)
[2023-09-10 07:03] VITALS: TEMP 97.4
--- NOTE | 2023-09-10 07:45 | P.PCN ---
Description of Procedure: PREOPERATIVE DIAGNOSIS: 1- Lumbar Degenerative Disc Diseases 2-Lumbar spondylosis with Facet arthropathy without myelopathy. 3-lumbar spinal stenosis POSTOPERATIVE DIAGNOSIS: 1-lumbar degenerative disc disease. 2-lumbar spondylosis with facet arthropathy without myelopathy. 3-lumbar spinal stenosis. PROCEDURE ATTEMPTED WITHOUT SUCCESS-Injection of radio contrast material into L4-5 interspace, interpretation of epidurogram, injection of steroid at L4- 5 epidural space under fluoroscopic guidance. ANESTHESIA: Lidocaine 1% subcutaneously. In OR continuous pulse ox, EKG, blood pressure and verbal communication was maintained with the patient. EBL: Minimal PROCEDURE INDICATION: Before the procedure were discussed with the patient detailed procedure, alternatives, complications including infection, bleeding, nerve damage, paralysis all of which could be permanent. Patient understands and all questions were answered. PROCEDURE DESCRIPTION : After getting consent, patient in OR in prone position. Back was prepped with chlorhexidine and draped in sterile fashion. After injecting 10 mL of 1% lidocaine subcutaneously, a 20-gauge Tuohy needle was introduced at L4 5 interspace with loss of resistance technique using a syringe filled with air. Negative CSF, negative blood, negative paresthesia. Needle position was confirmed with AP and lateral view of the fluoroscope. Patient complained of pain in the back and right thigh area even with small amount of air used for loss of resistance technique. Considering patient's extreme nervousness and apprehension, I decided not to inject any contrast. I repeated this same process at L5-S1 level. Unfortunately the patient responded the same way of com plaining pain only with air used for loss of resistance technique. I decided not to inject any contrast or steroid because of the patient's extreme nervousness and apprehension. I decided to abort the procedure. I took time to explain to the patient will process. It appears she understood. DISPOSITION / PLANS: No complication. The patient was placed in a supine position and transferred to the recovery area in a stable condition for observation. There was no evidence of lower extremity motor or sensory deficit after the procedure. Patient was discharged from the recovery room after meeti ng discharge criteria. Home discharge instructions were given to the patient by the staff. The patient was reexamined prior to discharge. The patient will schedule a follow up in the clinic in 2-4 weeks.
[2023-09-10 07:48] VITALS: BP 132/83; PULSE 80; RESP 16
--- NOTE | 2023-09-10 08:41 | FL ---
EXAMINATION TYPE: FL guided pain mgmt statistic Intraoperative/procedural fluoroscopic services were provided. Total fluoroscopy time is 23 seconds with a total of 1 submitted images to PACS. Please see the operative/procedural note for further details. DAP: [id number] Gycm2
== END 2023-09-10 08:10 | disposition home or self-care (01) ==
LOC: ORPAIN 06:21
PROVIDERS: ATTEND Pain Medicine Interventional Pain Medicine
DX: M47.816 Spondylosis without myelopathy or radiculopathy, lumbar region (principal); M48.061 Spinal stenosis, lumbar region without neurogenic claudication; M51.36 Other intervertebral disc degeneration, lumbar region
CPT/HCPCS: 62323

== ENCOUNTER → 2024-07-01 | Outpatient (CLI) | payer MEDICARE ==
--- NOTE | 2024-07-01 13:29 | BD ---
EXAMINATION TYPE: Axial Bone Density DATE OF EXAM: 07/01/2024 CLINICAL HISTORY: 68 years old Female. ICD-10 CODE: Z78.0 Postmenopausal Height: 5 ft 5 1/2 in Weight: 308 FRAX RISK QUESTIONS: Alcohol (3 or more units per day): no Family History (Parent hip fracture): no Glucocorticoids (More than 3mos): no (Ex: prednisone, prednisolone, methylprednisolone, dexamethasone, and hydrocortisone). History of Fracture in Adulthood: no Secondary Osteoporosis: 1. Type 1 Diabetes: no 2. Hyperthyroidism: no 3. Menopause before 45: not known 4. Malnutrition: no 5. Chronic liver disease: no Rheumatoid Arthritis: no Current Tobacco Use: no RISK FACTORS HISTORY OF: Surgery to Spine/Hip(right/left)/Wrist (right/left): salvador carpal tunnel MEDICATIONS: Thyroid Medications: none Osteoporosis Medications: none EXAM MEASUREMENTS: Bone mineral densitometry was performed using the [employer] System. Bone mineral density as measured about the Lumbar spine is: ----- L1-L4(G/cm2): 1.156 T Score Values are as follows: ----- L1: -0.7 ----- L2: -1.1 ----- L3: 0.2 ----- L4: 0.4 ----- L1-L4: -0.2 Z Score Values are as follows: ----- L1: -0.3 ----- L2: -0.7 ----- L3: 0.7 ----- L4: 0.9 ----- L1-L4: 0.2 baseline Bone mineral density about the R hip (g/cm2): 0.948 Bone mineral density about the L hip (g/cm2): 0.891 T Score values are as follows: -----R Neck: -0.6 -----L Neck: -1.1 -----R Total: 0.2 -----L Total: 0.8 Z Score values are as follows: -----R Neck: 0.1 -----L Neck: -0.3 -----R Total: 0.7 -----L Total: 1.2 baseline FRAX%s: The graph provided illustrates a 6.8 % chance for a major osteoporotic fx and a 0.5 % chance for the hips probability for fx in 10 years time. IMPRESSION: Normal (Values between +1 and -1 indicate normal bone mass). Consider repeating this study in 5 year s or sooner if there is some new clinical indication. NOTE: T-SCORE=SD OF THE YOUNG ADULT MEAN. [facility], , 07/01/2024 1:27 PM
== END | disposition home or self-care (01) ==
LOC: RADBDWWP 09:51
PROVIDERS: ATTEND Family Medicine
CPT/HCPCS: 77080